=== PATIENT | female | born 1930 | race Caucasian/White ===

== ENCOUNTER 2017-09-06 14:17 | Emergency (ER) | payer MEDICARE, OTHER ==
--- NOTE | 2017-09-06 14:35 | ED Physician Documentation ---
General Adult - HISTORIAN Historian: patient, paramedics - HPI Stated Complaint: mental status changes Chief Complaint: General Adult Additional Information: For 2-3 days, has not slept and believes neighbors are getting snakes from the pond and putting them in her apartment because they want her unit. She has overheard the neighbors talking about how they will get rid of patient one way or another. She states she received a new med that affected her badly but has not had it for 3 days. No family nearby, but has home health services. Neighbors asked EMS to take pt to [place]. Pt has psych at [facility] scheduled for Saturday, September 09. Neighbor at bedside. No family members nearby. Neighbor says there is no one for pt to stay with. Pt does not want to return home. - ROS CONST: no problems, fever (felt feverish last evening) - PAST HX Past History: asthma, COPD, CHF, hypertension, other (anxiety) Other History: other (appendectomy) Surgeries/Procedures: other (appendectomy) Allergies/Adverse Reactions: Allergies Allergy/AdvReac Type Severity Reaction Status Date / Time adenosine Allergy Unknown Verified 08/17/12 08:19 metformin Allergy Unknown Verified 12/25/11 21:34 morphine Allergy Unknown Verified 08/17/12 08:19 Penicillins Allergy Unknown Verified 08/17/12 08:19 Tetanus Vaccines and Toxoid Allergy Unknown Verified 08/17/12 08:19 [Tetanus] contrast dye Allergy Unknown Uncoded 08/17/12 08:19 Home Medications: Ambulatory Orders Medication Instructions Recorded Hydrocodone/Acetaminophen 5 - 500 mg PO Q6 PRN 04/08/12 [Hydrocodon-Acetaminophen 5-500] Alprazolam [Xanax] 08/17/12 Ramipril [Altace] 10 mg PO DAILY 08/17/12 Ipratropium/Albuterol Sulfate 1 inh INH PRN PRN 09/06/17 [Combivent Respimat] Nifedipine [Nifedipine ER] 60 mg PO DAILY 09/06/17 Sertraline HCl [Zoloft] 50 mg PO DAILY 09/06/17 - SOCIAL HX Smoking History: quit greater than 1 year, cigarettes - FAMILY HX Family History: No - VITAL SIGNS Vital Signs: Vital Signs Temp Pulse Resp BP Pulse Ox 165/68 08/17/12 09:19 - REVIEWED ASSESSMENTS Nursing Assessment Reviewed: Yes Vitals Reviewed: Yes Progress - Progress Progress: Report Submission Date: Sep 06, 2017 3:28:38 PM CDT Patient Study Name: PATRICIA STEEN Date: Sep 06, 2017 2:50:54 PM CDT Modality Type: DX Gender: F Description: CHEST : [birth year] Institution: [facility] Physician: STALIN CARLOS Examination: PA and lateral chest. History: ALTERED MENTAL STATUS TODAY, SUDDEN ONSET (Hx) Evaluate lung hood. Comparison exam: 17 August 2012 Findings: PA lateral chest demonstrate a normal cardiac and mediastinal silhouette. Vascular calcifications involving aortic arch. Chronic interstitial changes. No focal infiltrate. No blunting of the costophrenic margins. Osseous structures are appropriate for age. Impression: Chronic parenchymal changes. No acute pulmonary process. Electronically signed on Sep 06, 2017 3:28:38 PM CDT by: Jose Benedict Report Submission Date: Sep 06, 2017 3:26:34 PM CDT Patient Study Name: PATRICIA STEEN Date: Sep 06, 2017 2:44:14 PM CDT Modality Type: CT\SR Gender: F Description: CT BRAIN W/O CONTRAST : [birth year] Institution: [facility] Physician: STALIN CARLOS Examination: CT head without contrast History: ALTERED MENTAL STATUS TODAY, SUDDEN ONSET (Hx) / ITS.REASON mental status changes (DICOM Hx) / ITS.REASON mental status changes (Pt comments) Comparison exam: None available Technique: Noncontrast head CT protocol. Findings: Ventricles and sulci are prominent. Cerebrocerebellar parenchyma demonstrates periventricular low attenuation consistent with small vessel disease. No evidence for parenchymal hemorrhage. No evidence for mass or mass effect. No midline shift. No extra axial fluid collections. Partial visualization of the paranasal sinuses demonstrates right maxillary sinus opacification. Mastoid air cells, orbits, skull and scalp without gross irregularity. Impression: Age related changes. No acute parenchymal process. No hemorrhage. Electronically signed on Sep 06, 2017 3:26:34 PM CDT by: Jose Benedict [id number], discussed with Dr. Haque. 1610, pt discussed with social economist who is here to see pt. 1715, will be admitted to [facility]. ED Results Lab/Radiology - Orders Orders: ED Orders Category Date Time Status Continuous EKG monitoring Q1H Care 09/06/17 14:[address] IV Lock 1T Care 09/06/17 14:26 Active CHEST 2VIEW [RAD] Stat Exams 09/06/[address] BRAIN W/O CONTRAST Stat Exams 09/06/17 Ordered CBC/PLATELET/DIFF Routine Lab 09/06/17 Ordered CMP Routine Lab 09/06/17 Ordered NT-proBNP Stat Lab 09/06/17 Ordered TROPONIN I (cTnI) Stat Lab 09/06/17 Ordered URINALYSIS Routine Lab 09/06/17 Ordered EKG WITH COMPARISON Stat Ther 09/06/17 Ordered General Adult Physical Exam - PHYSICAL EXAM GENERAL APPEARANCE: moderate distress (anxious) EENT: eye inspection normal, ENT inspection normal (dentures), pharynx normal, no signs of dehydration, no nystagmus NECK: normal inspection, supple RESPIRATORY: no resp distress, breath sounds normal CVS: reg rate & rhythm, heart sounds normal, no murmur ABDOMEN: soft, normal bowel sounds BACK: normal inspection, no CVA tenderness, other (no vertebral tenderness) SKIN: warm/dry, normal color EXTREMITIES: non-tender, edema (R>L ankle) NEURO: CN's nml as tested, motor nml, sensation nml Discharge Clincal Impression: Change in mental status Clincal Impression: (Ruled Out): Back pain Referrals: Samaria Monroy MD [Primary Care Provider] - 2 Days Condition: Fair Disposition: 04 XFER JAIL Decision to Admit: NO Decision Time: 17:15
[2017-09-06] MEDS: LORazepam 2 MG/ML VIAL IVP ONE (14:40)
[2017-09-06 14:53] LABS: BASOPHILS % 0.4 (0.0-1.5); EOSINOPHILS % 2.3 % (0.0-6.8); MEAN CORPUSCULAR HEMOGLOBIN 31.2 pg (28.0-34.0); MEAN CORPUSCULAR VOLUME 93.5 fl (80.0-100.0); MONOCYTES % 4.2 % (0.0-11.0); NEUTROPHILS # 8.3 # k/uL (1.4-7.7)
[2017-09-06] MEDS: LORazepam 2 MG/ML VIAL ONE (14:53)
[2017-09-06 15:15] LABS: eGFR (African) > 60; eGFR (Non-African) > 60
[2017-09-06 15:18] LABS: APPEARANCE,URINE CLEAR (CLEAR); COLOR,URINE YELLOW (YELLOW); OCCULT BLOOD,URINE NEGATIVE (NEGATIVE); PH URINE 5.5 (5.0 - 8.0); UROBILINOGEN URINE 0.2 Eu (0.2-1.0)
--- NOTE | 2017-09-06 15:33 | Diagnostic Imaging Report ---
STALIN CARLOS [facility] [id number] [facility] [address] [place], [place]. [address] Report Submission Date: Sep 06, 2017 3:26:34 PM CDT Patient Study Name: PATRICIA STEEN Date: Sep 06, 2017 2:44:14 PM CDT Modality Type: CT\SR Gender: F Description: CT BRAIN W/O CONTRAST : [birth year] Institution: [facility] Physician: STALIN CARLOS Examination: CT head without contrast History: ALTERED MENTAL STATUS TODAY, SUDDEN ONSET (Hx) / ITS.REASON mental status changes (DICOM Hx) / ITS.REASON mental status changes (Pt comments) Comparison exam: None available Technique: Noncontrast head CT protocol. Findings: Ventricles and sulci are prominent. Cerebrocerebellar parenchyma demonstrates periventricular low attenuation consistent with small vessel disease. No evidence for parenchymal hemorrhage. No evidence for mass or mass effect. No midline shift. No extra axial fluid collections. Partial visualization of the paranasal sinuses demonstrates right maxillary sinus opacification. Mastoid air cells, orbits, skull and scalp without gross irregularity. Impression: Age related changes. No acute parenchymal process. No hemorrhage. Electronically signed on Sep 06, 2017 3:26:34 PM CDT by: Jose SMITH
--- NOTE | 2017-09-06 15:34 | Diagnostic Imaging Report ---
STALIN CARLOS [facility] [address] [facility] [address] [place] [address]. [id number] Report Submission Date: Sep 06, 2017 3:28:38 PM CDT Patient Study Name: PATRICIA STEEN Date: Sep 06, 2017 2:50:54 PM CDT Modality Type: DX Gender: F Description: CHEST : [birth year] Institution: [facility] Physician: STALIN CARLOS Examination: PA and lateral chest. History: ALTERED MENTAL STATUS TODAY, SUDDEN ONSET (Hx) Evaluate lung hood. Comparison exam: 17 August 2012 Findings: PA lateral chest demonstrate a normal cardiac and mediastinal silhouette. Vascular calcifications involving aortic arch. Chronic interstitial changes. No focal infiltrate. No blunting of the costophrenic margins. Osseous structures are appropriate for age. Impression: Chronic parenchymal changes. No acute pulmonary process. Electronically signed on Sep 06, 2017 3:28:38 PM CDT by: Jose SMITH
[2017-09-06 15:35] LABS: CANNABINOIDS NEGATIVE ng/mL (< 50); METHYLENEDIOXYMETHAMPHETAMINE NEGATIVE ng/mL (<500)
[2017-09-06 17:37] VITALS: BP 132/62
== END 2017-09-06 17:30 ==
LOC: ED 14:17
DX: R41.82 Altered mental status, unspecified (principal)
CPT/HCPCS: 70450; 71046; 80053; 81002; 83880; 84484; 85025; 93005; 96374; 99285; G0480; G0481; J2060; 80320; 80377; S1016

== ENCOUNTER 2017-09-06 17:27 | Inpatient (IN) | payer SELFPAY ==
[2017-09-06 14:47] VITALS: BP 128/60
== END 2017-09-10 14:15 | disposition home or self-care (01) | DRG 885 ==
LOC: ICF 17:27
PROVIDERS: ADMIT Family Medicine; ATTEND Family Medicine
DX: F22 Delusional disorders (principal); F41.9 Anxiety disorder, unspecified; J44.9 Chronic obstructive pulmonary disease, unspecified; I50.22 Chronic systolic (congestive) heart failure; E11.9 Type 2 diabetes mellitus without complications